=== PATIENT | male | born 1980 ===

== ENCOUNTER 2019-05-17 09:32 | Emergency (ER) | payer OTHER ==
[~2019-05-17] VITALS: Ht 175.3 cm; Wt 89.8 kg
[2019-05-17] MEDS ORDERED: CIPRO500 MG PO (15:08)
[2019-05-17] MEDS ORDERED: ULTRACET PO (15:28)
== END 2019-05-17 15:43 | disposition home or self-care (01) ==
LOC: ER 09:32
DX: R10.2 Pelvic and perineal pain (principal)

== ENCOUNTER 2023-03-18 07:47 | Outpatient (CLI) | payer OTHER ==
[~2023-03-18 07:47] MED LIST: CIPRO500 MG PO; ULTRACET PO
== END 2023-03-18 07:55 | disposition home or self-care (01) ==
LOC: RAD 07:47
PROVIDERS: ATTEND Surgery
DX: Z01.811 Encounter for preprocedural respiratory examination (principal)